=== PATIENT | male | born 1980 | race Caucasian/White ===

== ENCOUNTER 2020-03-26 19:27 | Emergency (ER) | payer OTHER, SELFPAY ==
[2020-03-26 19:24] VITALS: BP 124/90; PULSE 69; RESP 13; TEMP 36.5; O2SAT 95
[2020-03-26 19:30] VITALS: PULSE 69
--- NOTE | 2020-03-26 19:30 | ECG_ITS ---
Measurements Intervals [place] Rate: 61 P: 27 [place]: 172 QRS: -39 QRSD: 122 T: 67 QT: 408 QTc: 411 Interpretive Statements SINUS RHYTHM LEFT AXIS DEVIATION RIGHT BUNDLE BRANCH BLOCK BASELINE ARTIFACT- I, II, V1 ABNORMAL ECG Electronically Signed On 03-27-2020 6:46:21 CDT by Jean Cuellar D.O.
--- NOTE | 2020-03-26 19:34 | ED.SYNCOPE ---
HPI - Syncope General Chief Complaint: Syncope Stated Complaint: syncope Time Seen by Provider: 03/26/20 19:33 History of Present Illness HPI narrative: Syncopal episode at home this evening. He was giving himself a hair cut when he wiped some blood from his ear. After seeing the blood he became nauseated and light headed. He fell to the ground and was briefly unconscious. His called EMS and by the time they arrived he had returned to baseline. On arrival to the ED he has no symptoms. He had NC last year. Related Data Home Medications Medication Instructions Recorded Confirmed Zyrtec 10 mg PO DAILY 10/02/19 10/29/19 aspirin 81 mg PO DAILY 10/29/19 10/29/19 Allergies Allergy/AdvReac Type Severity Reaction Status Date / Time omeprazole Allergy Mild Rash Verified 03/26/20 19:42 Review of Systems Review of Systems: All systems reviewed & are unremarkable except as noted in HPI and below Constitutional: Constitutional: Denies fever(s) ENT: Denies sore throat Cardiovascular: Cardiovascular: Denies chest pain Respiratory: Respiratory: Denies dyspnea Gastrointestinal: Gastrointestinal: Denies abdominal pain, Reports nausea and Denies vomiting Musculoskeletal: Musculoskeletal: Denies back pain Neurologic: Denies confusion, Denies vertigo, Reports syncope, Denies headache(s), Denies numbness and Denies weakness Hematologic/Lymphatic: Hematologic/Lymphatic: Reports easy bleeding PMFSH Past Medical History Medical History GERD (gastroesophageal reflux disease) Pneumonia Surgical History Surgical History No history of previous surgery Family History Family History Father Acute myocardial infarction, Onset Age: 73 Diabetes mellitus Social History Social History Smoking packs per day: 0.5 Smoking cigarettes per day: 10.0 Years smoked: 6 Smoking pack-years: 3.00 Smoking status: Former smoker Tobacco type: cigarettes Second hand tobacco smoke exposure: No Alcohol intake: current Drinks per week: 6 Substance use: current Substance use type: marijuana Gender identity (if verbalized by the patient): Male Spiritual care concerns: No Agree to blood products: Yes Exam Const: General: healthy appearing, no acute distress and alert Orientation/consciousness: patient oriented x3 HENMT: Head: normal to inspection Neck: Neck: normal visual inspection and no lymphadenopathy Chest: Chest palpation & inspection: no tenderness Resp: Effort & Inspection: normal respiratory effort Auscultation: clear to auscultation bilaterally, no rales, no rhonchi and no wheezes Cardio: Jugular venous distension: no JVD Rate: regular rate Rhythm: regular rhythm Heart sounds: no murmurs GI: Inspection: non-distended GI Palp: Yes Soft to palpation and No Tenderness to palpation present (GI) Skin: General skin exam: normal color Neuro: General: patient oriented x3 and moves all extremities Speech: normal speech Extrem: General: no edema Psych: Appearance: well kempt Affect: normal affect Course Vital Signs Vital signs: Vital Signs Temperature 36.5 C 03/26/20 19:24 Pulse Rate 69 03/26/20 19:24 Respiratory Rate 13 03/26/20 19:24 Blood Pressure 124/90 03/26/20 19:24 Pulse Oximetry 95 03/26/20 19:24 Temperature 36.5 C 03/26/20 19:24 Pulse Rate 69 03/26/20 20:56 Respiratory Rate 24 H 03/26/20 20:56 Blood Pressure 123/77 03/26/20 20:56 Pulse Oximetry 93 03/26/20 20:56 MDM - Syncope MDM Narrative Medical decision making narrative: History is very indicative of vasovagal syncope. EKG unchanged from october 2019. No chest pain or other symtpom requiring further testing. Differential Diagnosis Differential diagnosis: L
[2020-03-26 19:35] VITALS: BP 120/87; PULSE 67
[2020-03-26 19:36] VITALS: BP 131/92; BP 133/95; PULSE 78; PULSE 84
[2020-03-26 19:41] LABS: Basophils Absolute Auto 0.1 K/mm3 (0.0-0.1); Basophils Percent Auto 0.7 % (0.2-1.2); Eosinophils Absolute Auto 0.1 K/mm3 (0-0.3); Eosinophils Percent Auto 1.9 % (0-4.4); Hematocrit 44.4 % (42.0-52.0); Hemoglobin 15.4 g/dL (14.0-18.0); Immature Granulocyte Absolute 0.02 K/mm3 (0.00-0.031); Immature Granulocyte Percent A 0.3 % (0-0.5); Lymphocytes Absolute Auto 2.83 K/mm3 (0.9-3.2); Lymphocytes Percent Auto 38.7 % (18.3-44.2); Mean Corpuscular HGB Conc 34.7 g/dl (32-36); Mean Corpuscular Hemoglobin 31.4 pg (26-34); Mean Corpuscular Volume 90.4 fl (80-100); Mean Platelet Volume 10.5 fl (7.4-10.4); Monocytes Absolute Auto 0.5 K/mm3 (0.1-0.6); Monocytes Percent Auto 6.6 % (2.6-8.5); Neutrophils Absolute Auto 3.8 K/mm3 (1.3-6.7); Neutrophils Percent Auto 51.8 % (45.5-73.1); Platelet Count Result 238 k/mm3 (150-375); Red Blood Count 4.91 M/mm3 (4.6-6.20); Red Cell Distribution Width 13.1 % (11.5-14.5); White Blood Count 7.3 K/mm3 (4.5-10.0)
[2020-03-26 19:52] LABS: Blood Urea Nitrogen 12 mg/dL (9-20); Calcium 9.3 mg/dL (8.4-10.2); Carbon Dioxide 24 mmol/L (22-30); Chloride 106 mmol/L (98-107); Estimated Glomerular Filt Rate > 60; Glucose 104 mg/dL (75-110); Potassium 3.8 mmol/L (3.4-5.0); Sodium 138 mmol/L (137-145)
[2020-03-26] MEDS: SODIUM CHLORIDE 0.9% IV 1,000 ML 999 ML IV CONT (20:10)
[2020-03-26 20:56] VITALS: BP 123/77; PULSE 69; RESP 24; O2SAT 93
== END 2020-03-26 20:56 | disposition home or self-care (01) ==
PROVIDERS: Emergency Provider Emergency Medicine; PCP Family Medicine
DX: R55 Syncope and collapse (principal); K21.9 Gastro-esophageal reflux disease without esophagitis; Z87.891 Personal history of nicotine dependence; I45.10 Unspecified right bundle-branch block
CPT/HCPCS: 36415; 80048; 85025; 93005; 96360; 99283; J7030

== ENCOUNTER 2024-08-20 08:00 | Outpatient (CLI) | payer OTHER, SELFPAY ==
--- NOTE | ~2024-08-20 | CT_ITS ---
EXAMINATION: CTA chest DATE: 08/20/2024 08:37 INDICATION: Ascending aortic aneurysm TECHNIQUE: Computed tomographic angiography (CTA) of the chest was performed without and with 100 mL Omnipaque-350 intravenous contrast. Volume-rendered 3D-reconstructions of the aorta and large arterie s were constructed by the technologist on a separate workstation. Automated exposure control and iter ative reconstruction technique were employed. The dose-length product was 1040.27 mGy-cm. COMPARISON: 10/02/2019 FINDINGS: The lungs remain clear with no pneumonia, pulmonary edema or pleural effusion. Heart size is normal. Prominent scattered atherosclerotic coronary artery calcification. There is suggestion of subendocard ial fat along the lateral and inferolateral foote of the left ventricle suggestive of sequela of project eng jean infarction. No pericardial effusion. No pathologically enlarged thoracic lymphadenopathy. 6.5 cm exophytic cyst arising from the upper pole the left kidney. Mild thoracic dextrocurvature with mild s pondylosis. Minimal increase in a mild fusiform aneurysm of the ascending thoracic aorta which measures up to 4.3 x 4.4 cm measured orthogonal to the flow on the coronal and sagittal images respectively. Previously this measured 4.1 x 4.2 cm. The aneurysm continues to taper to a normal caliber at the aortic arch a nd throughout the descending thoracic aorta. There is also dilation of the aortic root which measures 5.1 cm in diameter tapering to 4.2 cm at the annulus on the coronal images. This is unable to be raji sured due to motion artifact along the sagittal plane. Corresponding measurements on the prior study are 4.8 cm and 4.0 cm. IMPRESSION: 1. Slight increase in size of aneurysmal dilation of the aortic root measuring up to 5.1 cm in diamet er and of the ascending thoracic aorta measuring up to 4.4 x 4.3 cm. 2. Prominent atherosclerotic coronary artery calculi cyst with suggestion of increased subendocardial fat related to chronic infarct along the lateral and inferolateral wall of the left ventricle. Corre late for history of prior infarct. Reviewed, dictated and finalized at location A. IMPRESSION: 1. Slight increase in size of aneurysmal dilation of the aortic root measuring up to 5.1 cm in diameter and of the ascending thoracic aorta measuring up to 4. 4 x 4.3 cm. 2. Prominent atherosclerotic coronary artery calculi cyst with suggestion of in creased subendocardial fat related to chronic infarct along the lateral and inf erolateral wall of the left ventricle. Correlate for history of prior infarct.
[2024-08-20 08:30] LABS: Estimated Glomerular Filt Rate > 60
== END 2024-08-20 08:01 | disposition home or self-care (01) ==
LOC: ANHIMG 08:04
PROVIDERS: PCP Emergency Medicine; Visit Provider Internal Medicine Cardiovascular Disease
DX: I71.21 Aneurysm of the ascending aorta, without rupture (principal); I25.84 Coronary atherosclerosis due to calcified coronary lesion
CPT/HCPCS: 71275; Q9967

== ENCOUNTER 2025-08-25 10:26 | Outpatient (CLI) | payer OTHER, SELFPAY ==
--- NOTE | ~2025-08-25 | CT_ITS ---
CTA CHEST CLINICAL HISTORY: I71.21 - Aneurysm of the ascending aorta, without rupture . COMPARISON: 08/20/2024 TECHNIQUE: Helical CTA performed from thoracic inlet to upper abdomen IV contrast information not listed in PACS Coronal, sagittal reformats. Multiplanar MIPS CT images acquired with automatic exposure control for dose reduction DLP: 819 mGy-cm FINDINGS: Thoracic aorta: Unchanged fusiform ectasia of ascending aorta at 4.0 cm. Pulmonary arteries: No PE. Heart/pericardium: Coronary artery calcifications. RV/LV ratio: Normal. Lungs/Pleura: Clear. Tracheobronchial tree: Patent. Nodes: No enlarged nodes. Bones: No acute bony abnormality. Soft tissues: Unremarkable. Visualized upper abdomen: Hepatomegaly, with steatosis. Colonic diverticula. Large left renal cyst. IMPRESSION: 1. No acute cardiopulmonary findings or significant change. 2. Thoracic aorta unchanged in size with fusiform ectasia of the ascending segment at 4.0 cm. Recommend surveillance in 3 years. Reviewed, dictated and finalized at location R. IMPRESSION: 1. No acute cardiopulmonary findings or significant change. 2. Thoracic aorta unchanged in size with fusiform ectasia of the ascending seg ment at 4.0 cm. Recommend surveillance in 3 years.
== END 2025-08-25 10:27 | disposition home or self-care (01) ==
PROVIDERS: PCP Emergency Medicine; Visit Provider Internal Medicine Cardiovascular Disease
DX: I71.21 Aneurysm of the ascending aorta, without rupture (principal)
CPT/HCPCS: 71275; Q9967

== ENCOUNTER 2025-10-29 08:35 | Outpatient (CLI) | payer OTHER, SELFPAY ==
--- OUTSIDE RECORDS SUMMARY | 2025-10-29 08:40 | XMS_ITS | Data Portability ---
Author Organization [place] - [facility] OFFICE Address [address] [place] [address] Care Team Providers Care Insecticide Mixer Name Role Phone Chato Roth Primary Care Provider [phone] Assessment Encounter Date Assessment Date Assessment LastModified by Organization Details LastModified Time 05/04/2022 05/04/2022 Patient Examined by MCKINLEY Agrawal, Also interviewed / examined by Supervising physician. Assessment / plan discussed and implemented Encounter scribed by MCKINLEY Agrawal. Documentation reviewed and approved by supervising physician alyssa Not available 05/04/2022 14:13:27 11/20/2023 11/20/2023 Patient Examined by MCKINLEY Agrawal, Also Documentation reviewed and approved by supervising physician alyssa Not available 11/20/2023 10:16:58 01/01/2024 01/01/2024 Patient Examined by MCKINLEY Agrawal, Also Documentation reviewed and approved by supervising physician [email or web address] Not available 12/31/2023 07:00:41 Plan of Treatment Reminders Order Date Submit Date Provider Name Organization Details Last Modified By Last Modified Time Details Appointments None record ed. Lab None record ed. Referral None record ed. Procedures None record ed. Surgeries None record ed. Imaging None record ed. MedicationOrders None record ed. VaccineOrders None record ed. Patient TargetsNo targets recorded. Patient Instructions Encounter Date Encounter Id Patient Instructions Last Modified By Organization Details Last Modified Time 01/01/2024 [id number] Low cholesterol diet advised Low sodium diet advised. eyassin Not available 01/01/2024 12:38:57 11/20/2023 [id number] Low cholesterol diet advised Low sodium diet advised. eyassin Not available 11/20/2023 10:22:37 04/29/2023 [id number] Weight loss 20 pounds Exercise advised Low cholesterol diet advised Low sodium diet advised. [email or web address] Not available 04/29/2023 14:41:13 10/26/2022 [id number] Weight loss 20 pounds Exercise advised Low cholesterol diet advised Low sodium diet advised. [email or web address] Not available 10/26/2022 15:05:20 05/04/2022 [id number] Weight loss, 20 pounds Exercise advised Low cholesterol diet advised Low sodium diet advised. eyassin Not available 05/04/2022 14:30:11 Reason for Referral None Reported. Results Created Date Observation Date Name Description Value Unit Range Abnormal Flag Specimen Type Note LastModifiedBy Organization Detail LastModifiedTime 05/04/2022 05/04/2022 electrocardiogram No observation recorded. Gaby Negro Not Available 05/06/2022 09:58:58 10/26/2022 10/26/2022 electrocardiogram No observation recorded. Gaby Negro Not Available 10/27/2022 11:48:17 11/20/2023 11/20/2023 electrocardiogram No observation recorded. Alesha Montano Not Available 11/28/2023 13:09:58 12/09/2023 12/09/2023 exercise stress test No observation recorded. Alesha Montano Not Available 12/19/2023 10:09:34 12/14/2023 12/14/2023 US, echocardiogram No observation recorded. Alesha Montano Not Available 12/19/2023 14:44:58 Result Notes None recorded. Problems Name Problem SNOMED Code Status Onset Date Resolution Date Notes Provider Name and Address Organization Details Recorded Time High troponin I level 325292257 Active 2018 Taylor kaiser [facility] 9 06:41:42 Syncope and collapse 257868017 Active 2018 Taylor kaiser [facility] 9 06:42:12 Acute non-ST segment elevation myocardial infarction 699605569 Active 2018 Taylor kaiser [facility] 9 06:42:28 Placement of stent Active 2018 Johanny kaiser [facility] 9 12:33:42 Gastroesophage al reflux disease 099662851 Active 2018 Weaver [place]esto [place], [place] - [facility] 9 16:20:33 Pneumonia 808310502 Active 2018 Weaver [place] - [facility] 9 16:21:53 History of placement of stent for coronary artery disease 669229535 Active 2018 Weaver [place] - [facility] 9 09:43:10 Coronary arterioscleros is 96364588 Active 2018 Weaver [place] - [facility] 9 09:43:35 Dyslipidemia 791403197 Active 2019 Weaver [place] - [facility] 2 10:45:51 Syncope 266680751 Active 2019 Weaver [place] - [facility] 0 14:19:42 Lightheadednes s 768389758 Active 2019 Weaver [place] - [facility] 0 14:19:52 Problem Notes None recorded. Procedures Surgical History Date Name Laterality Status Provider Name and Address Organization Details Recorded Time [facility]ent [facility] 10/17/2019 10:44:48 Imaging Results Imaging Date Name Status LastModifiedBy Organization Detail LastModifiedTime 2 electrocardiogram completed Gaby Negro Not Available 2 09:58:58 2 electrocardiogram completed Gaby Negro Not Available 2 11:48:17 4 electrocardiogram completed Ashleigh Montano Not Available 024 13:09:58 4 exercise stress test completed Ashleigh Montano Not Available 12/19/2023 10:09:34 4 US, echocardiogram completed Ashleigh Montano Not Available 2023 14:44:58 Procedure Notes None recorded. Medical Equipment None Reported. Allergies Allergen ID Allergen Name Allergen Category Reaction Reaction Severity Criticality Documentation Date Start Date Code Code System Note Provider Name and Address Organization Details Recorded Time 9330 omeprazol e medicatio n Not available Not available Not available 10/31/[address] [facility], [place] - [facility] 9 14:59:36 Medications Name Authored On Sig Start Date Stop Date Status Note Indication Fill Status Repeat Number Dispense Quantity LastModified by Organization Details LastModified Time Zyrte c 10 mg table t 9 14:59:51 Take 1 tabl et ever y day by oral rout e. active Not Available Not availab le 0 Not Available Owen Brush [place] - [facility] 10/31/2019 14:59:51 rosuv astat in 10 mg table t 0 05:25:33 TK 1 T PO D 11/04 aborted Not Available Not availab le 0 Not Available Hima Charles MD [address] [place], [address], [facility] - [facility] 11/04/2020 15:29:40 aspir in 81 mg table t,del ayed relea se 1 05:03:33 TAKE 1 TABL ET BY MOUT H EVER Y DAY active Not Available Not availab le 0 Not Available Not Available [facility] 05/05/2021 05:03:33 clopi dogre l 75 mg table t 4 07:28:14 TAKE 1 TABL ET BY MOUT H MAGALYS Y active Not Available Not availab le 0 Not Available Not Available [facility] 06/23/2024 07:28:14 losar newman 50 mg table t 4 07:28:14 TAKE 1 AND 1/2 TABL ETS BY MOUT H EVER Y DAY active Not Available Not availab le 0 Not Available Not Available [facility] 06/23/2024 07:28:14 metop rolol succi sandy ER 25 mg table t,ext ended relea se 24 hr 4 07:28:14 TAKE 1 TABL ET BY MOUT H MAGALYS Y active Not Available Not availab le 0 Not Available Not Available [facility] 06/23/2024 07:28:14 rosuv astat in 20 mg table t 4 07:28:14 TAKE 1 TABL ET BY MOUT H MAGALYS Y active Not Available Not availab le 0 Not Available Not Available [facility] 06/23/2024 07:28:14 Vitals Date Recorded Body height Body mass index (BMI) Body weight Heart rate Respiratory rate Oxygen saturation Systolic And Diastolic Provider Name and Address Organization Details Last Updated DateTime 4 180.34 cm 37.5 kg/m2 537998. 35 g 68 /min 16 /min 96 % 145/92 mm[Hg] Martell Mihai [facility] 4 10:03:55 Date Recorded Body height Body mass index (BMI) Body weight Heart rate Respiratory rate Oxygen saturation Systolic And Diastolic Provider Name and Address Organization Details Last Updated DateTime 4 180.34 cm 36.3 kg/m2 102330. 02 g 90 /min 16 /min 97 % 134/82 mm[Hg] Martell Mihai [facility] 4 12:21:19 Date Recorded Body height Body mass index (BMI) Body weight Heart rate Respiratory rate Oxygen saturation Systolic And Diastolic Provider Name and Address Organization Details Last Updated DateTime 3 180.34 cm 35.6 kg/m2 949429. 05 g 82 /min 16 /min 97 % 120/82 mm[Hg] Hima No i, MD [address] [place], [address], [facility] 3 14:18:13 Date Recorded Body height Body mass index (BMI) Body weight Heart rate Oxygen saturation Systolic And Diastolic Provider Name and Address Organization Details Last Updated DateTime 2 180.34 cm 35.6 kg/m2 235261. 05 g 76 /min 97 % 146/66 mm[Hg] Gaby Negro [facility] 2 13:59:43 Date Recorded Body height Body mass index (BMI) Body weight Heart rate Oxygen saturation Systolic And Diastolic Provider Name and Address Organization Details Last Updated DateTime 2 180.34 cm 34.3 kg/m2 457442. 72 g 79 /min 97 % 146/86 mm[Hg] Sangeetha Bruner [facility] 2 14:32:44 Social History Question Answer Notes LastModified by Organizat ion Details LastModified Time Tobacco Smoking Status Former Smoker Not Available [facility] 09/08/2020 03:30:41 What Is Your Level Of Alcohol Consumption? Moderate drinks 6 per week Not Available [facility] 09/08/2020 03:30:41 What type of diet are you following? Regular Not Available [facility] 09/08/2020 03:30:41 How many years have you smoked tobacco? 9 Not Available [facility] 09/08/2020 03:30:41 How much tobacco do you smoke? 1/2 pack per day Not Available [facility] 09/08/2020 03:30:41 Which illicit or recreational drugs have you used? cannabis Not Available [facility] 09/08/2020 03:30:41 What is your level of caffeine consumption? Moderate Not Available [facility] 09/08/2020 03:30:41 What was the date of your most recent tobacco screening? 05/06/2020 Owen GARCIA - [facility] 11/02/2020 15:23:02 Social History Observation Description Date Observed Sex Unknown 01/01/2024 Legal Sex Male Status Not (finding) 10/29/20 25 No social history survey screeners recorded No social history SDOH screeners recorded Functional Status Question Answer Note LastModified by Organizat ion Details LastModified Time What is your exercise level? None Not Available [facility] 09/08/2020 03:30:41 Do you or have you ever used e-cigarettes or vape? Never used electronic cigarettes Not Available [facility] 09/08/2020 03:30:41 Do you or have you ever used smokeless tobacco? Former smokeless tobacco user Not Available [facility] 09/08/2020 03:30:41 What is your level of alcohol consumption? Moderate drinks 6 per week Not Available [facility] 09/08/2020 03:30:41 No Functional Screening assessment recorded No Functional SDOH screeners recorded Mental Status None recorded. No Mental Screening assessment recorded No Mental SDOH screeners recorded Family History Relationship Description Onset Age of this Age Resolved Age Notes LastModified by Organization Details LastModified Time Father No current problems or disability heart diseas e, hyperl ipidem ia, heart attack , diabet es , HTN, irregu lar heart heart rate [email or web address] Not available 10/17/2019 10:42:34 Mother No current problems or disability [email or web address] Not available 10/06 10:41:13 Sister No current problems or disability diabet es [email or web address] Not available 10/17/2019 10:42:51 Medical History Condition Response Coronary Artery Disease Y High Cholesterol Y GERD/Reflux Y Myocardial Infarction Y Hyperlipidemia Y Hypertension Y Past Encounters Encounter ID Performer Location Encounter Start Date Encounter Closed Date Diagnosis/Indication Diagnosis SNOMED-CT Code Diagnosis ICD10 Code Diagnosis IMO Codes Diagnosis Note [id number] MD Marga Torres e Office [address] [place] [address] 10/17/2019 10:23:08 10/17/2019 11:19:08 History of placement of stent for coronary artery disease 136771686 Z95.5 s/p Lcx stentstill with LAD stenosis, will plan PCI to LAD. The patient will be scheduled for left heart catheteriz ation, with coronary angiogram, and possible PTCA/Stent . The procedure was discussed with the patient, and risks, benefits, and alternativ e options were explained. The patient was given informatio n about heart catheteriz ation and interventi onal procedures . The patient agrees to proceed. Acute non- ST segment elevation myocardial infarction 239470135 I21.4 with occluded Lcx, s/p stent Dyslipidemia 589879172 E 78.5 Needs to keep LDL less than 70, and HDL more than 40. [id number] MD Marga Torres e Office [address] [place] [address] 11/14/2019 12:25:05 11/14/2019 13:14:05 History of placement of stent for coronary artery disease 533876171 Z95.5 s/p Lcx stent, and LAD PCI Acute non- ST segment elevation myocardial infarction 092761481 I21.4 with occluded Lcx, s/p stent Dyslipidemia 983600165 E 78.5 Needs to keep LDL less than 70, and HDL more than 40. [id number] MD Marga Farah e Office [address] [place] [address] 04/01/2020 13:50:28 04/01/2020 14:57:29 History of placement of stent for coronary artery disease 826573749 Z95.5 Had CATH done in 10/31/19 revealed Successful distal LAD ballon angioplast y,followed by stent placement using Xience stent 2.5 x 23. Acute non- ST segment elevation myocardial infarction 153469280 I21.4 10/03/2019 , with occluded LCX, s/p PCI Dyslipidemia 893410004 E 78.5 Needs to keep LDL less than 70, and HDL more than 40.Will obtain fasting lipids for follow up. Coronary arteriosclerosis 87766098 I25.10 Maximal medical treatment. Had CATH done in 10/02/19 revealed Left main medium-siz ed artery, no stenosis. LAD showed distal LAD 75% with very distal disease right at the apex. There is a 1st diagonal branch that has mild-to-mo derate diffuse disease. 50% to 60% narrowing. Left circumflex is totally occluded in the proximal portion. RCA is a dominant vessel with minimal irregulari ty. No obstructio n lesion. Post angioplast y of the circumflex is open with good VICKIE-3 flow, which was VICKIE-0 before the procedure for the angioplast y. now with VICKIE-3 flow and good result to the proximal circumflex . We will continue with medical treatment. The patient would benefit from considerin g angioplast y to the distal LAD at the later stage. Had CATH done in 10/31/19 revealed Successful distal LAD ballon angioplast y,followed by stent placement using Xience stent 2.5 x 23. Syncope 010245668 R55 Had vasovagal syncope 03/26/2020w ill arrange for Holter Lightheadedness 92606087 8 R42 Symptoms occuring daily since syncopal event, home HR recordings average 70-80s, but had one HR of 50 bpm, with symptoms. Will order Holter to correlate symptoms with bradycardi a or other potential arrhythmia . [id number] MD Marga Torres Office [address] [place] [address] 05/06/2020 13:33:02 05/06/2020 14:10:39 Syncope 957884605 R55 Had vasovagal syncope 03/26/2020H olter was unremarkab le (24 hour) Lightheadedness 70240367 8 R42 Symptoms occuring daily since syncopal event, home HR recordings average 70-80s, but had one HR of 50 bpm, with symptoms. Will order Holter to correlate symptoms with bradycardi a or other potential arrhythmia . Coronary arteriosclerosis 66272825 I25.10 Maximal medical treatment. Had CATH done in 10/02/19 revealed Left main medium-siz ed artery, no stenosis. LAD showed distal LAD 75% with very distal disease right at the apex. There is a 1st diagonal branch that has mild-to-mo derate diffuse disease. 50% to 60% narrowing. Left circumflex is totally occluded in the proximal portion. RCA is a dominant vessel with minimal irregulari ty. No obstructio n lesion. Post angioplast y of the circumflex is open with good VICKIE-3 flow, which was VICKIE-0 before the procedure for the angioplast y. now with VICKIE-3 flow and good result to the proximal circumflex . We will continue with medical treatment. The patient would benefit from considerin g angioplast y to the distal LAD at the later stage. Had CATH done in 10/31/19 revealed Successful distal LAD ballon angioplast y,followed by stent placement using Xience stent 2.5 x 23. History of placement of stent for coronary artery disease 826066681 Z95.5 Had CATH done in 10/31/19 revealed Successful distal LAD ballon angioplast y,followed by stent placement using Xience stent 2.5 x 23. Acute non- ST segment elevation myocardial infarction 012110399 I21.4 10/03/2019 , with occluded LCX, s/p PCI Dyslipidemia 625427226 E 78.5 Needs to keep LDL less than 70, and HDL more than 40.Will obtain fasting lipids for follow up. [id number] MD Marga Torres Office [address] [place] [address] 11/04/2020 14:54:17 11/04/2020 15:34:13 Syncope 350676065 R55 Vasovagal syncope 4 hour holter monitor 04/27/2020: Unremarkab le holter Lightheadedness 44989678 8 R42 ResolvedHo lter as above Coronary arteriosclerosis 06970979 I25.10 Asymptomat ic Angiogram 10/31/2019 : Severe disease of the LAD distally. Successful angioplast y with stent placement to the distal LAD using a Xience stent 2.5 x 23 mm with good result. History of placement of stent for coronary artery disease 695313912 Z95.5 As above Acute non- ST segment elevation myocardial infarction 809806072 I21.4 s/p PCI to LAD ( 9) Dyslipidemia 956685252 E 78.5 Needs to keep LDL less than 70, and HDL more than 40. 020 LDL 88 Will increase Crestor to 20mg 11/04/2020 Will get fasting lipids for follow-up [id number] MD Marga Torres Office [address] [place] [address] 05/05/2021 13:40:45 05/05/2021 14:03:09 Syncope 249371204 R55 Vasovagal syncope 4 hour holter monitor 04/27/2020: Unremarkab le holter Lightheadedness 71174438 8 R42 ResolvedHo lter as above Coronary arteriosclerosis 05281121 I25.10 Asymptomat ic Treadmill Myoview Stress test, has high Oxford Risk score. Has Known CAD, or CAD risk equivalent . To look for any ischemia. Angiogram 10/31/2019 : Severe disease of the LAD distally. Successful angioplast y with stent placement to the distal LAD using a Xience stent 2.5 x 23 mm with good result. History of placement of stent for coronary artery disease 712440627 Z95.5 As above Acute non- ST segment elevation myocardial infarction 299823239 I21.4 s/p PCI to LAD ( 9) Dyslipidemia 432440541 E 78.5 Needs to keep LDL less than 70, and HDL more than 40.04/08/21 LIPID PANEL TC 141, TR 136, HDL 52, LDL 65Increase d Crestor to 20mg 11/04/2020 Will get fasting lipids for follow-up [id number] MD Marga Torres Office [address] [place] [address] 05/04/2022 13:47:46 05/04/2022 14:47:22 Syncope 519017421 R55 Vasovagal syncope 4 hour holter monitor 04/27/2020: Unremarkab le holter Lightheadedness 90299174 8 R42 ResolvedHo lter as above Coronary arteriosclerosis 29139569 I25.10 Asymptomat ic exercise stress testNo reversible defects. Normal LV function. NO EKG changes to suggest ischemia. Exercise tolerance; Below average. Angiogram 10/31/2019 : Severe disease of the LAD distally. Successful angioplast y with stent placement to the distal LAD using a Xience stent 2.5 x 23 mm with good result. History of placement of stent for coronary artery disease 174082358 Z95.5 As above Acute non- ST segment elevation myocardial infarction 399529665 I21.4 s/p PCI to LAD ( 9) exercise stress testNo reversible defects. Normal LV function. NO EKG changes to suggest ischemia. Exercise tolerance; Below average. Dyslipidemia 225890156 E 78.5 Needs to keep LDL less than 70, and HDL more than 40.04/08/21 LIPID PANEL TC 141, TR 136, HDL 52, LDL 65Increase d Crestor to 20mg 11/04/2020 Will get fasting lipids for follow-up Benign ess ential hypertension 8861117 I10 Blood pressure is elevated today, consider increase metoprolol to 25 mg daily and monitoring Essential hypertension 91518580 I10 [id number] MD Marga Torres Office [address] [place] [address] 10/26/2022 14:09:19 10/26/2022 15:07:59 Syncope 872224799 R55 Vasovagal syncope 4 hour holter monitor 04/27/2020: Unremarkab le holter Lightheadedness 50216467 8 R42 Coronary arteriosclerosis 97861899 I25.10 Asymptomat ic exercise stress testNo reversible defects. Normal LV function. NO EKG changes to suggest ischemia. Exercise tolerance; Below average. Angiogram 10/31/2019 : Severe disease of the LAD distally. Successful angioplast y with stent placement to the distal LAD using a Xience stent 2.5 x 23 mm with good result. History of placement of stent for coronary artery disease 800611102 Z95.5 As above Acute non- ST segment elevation myocardial infarction 456563499 I21.4 s/p PCI to LAD ( 9) exercise stress testNo reversible defects. Normal LV function. NO EKG changes to suggest ischemia. Exercise tolerance; Below average. Dyslipidemia 593537634 E 78.5 Needs to keep LDL less than 70, and HDL more than 40.04/08/21 LIPID PANEL TC 141, TR 136, HDL 52, LDL 65Increase d Crestor to 20mg 11/04/2020 Will get fasting lipids for follow-up Benign ess ential hypertension 2958914 I10 Blood pressure is elevated today, consider increase metoprolol to 25 mg daily and monitoring Essential hypertension 12446802 I10 [id number] Hima Charles MD [facility] [address] [place] [address] 04/29/2023 13:52:17 04/29/2023 14:49:48 Syncope 661319213 R55 Vasovagal syncope 4 hour holter monitor 04/27/2020: Unremarkab le holter Lightheadedness 27694240 8 R42 Coronary arteriosclerosis 63909336 I25.10 Asymptomat ic exercise stress testNo reversible defects. Normal LV function. NO EKG changes to suggest ischemia. Exercise tolerance; Below average. Angiogram 10/31/2019 : Severe disease of the LAD distally. Successful angioplast y with stent placement to the distal LAD using a Xience stent 2.5 x 23 mm with good result. History of placement of stent for coronary artery disease 199730932 Z95.5 As above Acute non- ST segment elevation myocardial infarction 436730324 I21.4 s/p PCI to LAD ( 9) exercise stress testNo reversible defects. Normal LV function. NO EKG changes to suggest ischemia. Exercise tolerance; Below average. Dyslipidemia 501079616 E 78.5 Needs to keep LDL less than 70, and HDL more than 40.04/08/21 LIPID PANEL TC 141, TR 136, HDL 52, LDL 65 Benign ess ential hypertension 5933528 I10 Blood pressure is elevated today, consider increase metoprolol to 25 mg daily and monitoring [id number] Hima Charles MD [facility] [address] [place] [address] 11/20/2023 09:49:53 11/20/2023 10:28:01 Syncope 681402147 R55 Vasovagal syncope 4 hour holter monitor 04/27/2020: Unremarkab le holter Lightheadedness 36770372 8 R42 resolved Coronary arteriosclerosis 60087690 I25.10 Treadmill Myoview Stress test, has high Oxford Risk score. Has Known CAD, or CAD risk equivalent . To look for any ischemia. exercise stress testNo reversible defects. Normal LV function. NO EKG changes to suggest ischemia. Exercise tolerance; Below average. Angiogram 10/31/2019 : Severe disease of the LAD distally. Successful angioplast y with stent placement to the distal LAD using a Xience stent 2.5 x 23 mm with good result. History of placement of stent for coronary artery disease 465256762 Z95.5 As above Acute non- ST segment elevation myocardial infarction 598047526 I21.4 s/p PCI to LAD ( 9) exercise stress testNo reversible defects. Normal LV function. NO EKG changes to suggest ischemia. Exercise tolerance; Below average. Dyslipidemia 541529190 E 78.5 Needs to keep LDL less than 70, and HDL more than 40.04/08/21 LIPID PANEL TC 141, TR 136, HDL 52, LDL 65 LDL was 54 done 08/2023 and he is taking crestor 20 mg daily. Benign ess ential hypertension 9409557 I10 BP is 160/110wil l start him on losartan 50 mg daily Dyspnea on exertion 6084 5006 R06.09 Obtain echo to evaluate for structural /functiona l disease. Essential hypertension 30110548 I10 [id number] Hima Charles MD [place] [facility] [place] [address] 01/01/2024 12:17:39 01/01/2024 12:43:46 Syncope 626107713 R55 Vasovagal syncope 4 hour holter monitor 04/27/2020: Unremarkab le holter Lightheadedness 61122623 8 R42 resolved Coronary arteriosclerosis 63303162 I25.10 positive stress test at the infero lateral aspect The patient will be scheduled for left heart catheteriz ation, with coronary angiogram, and possible PTCA/Stent . The procedure was discussed with the patient, and risks, benefits, and alternativ e options were explained. The patient was given informatio n about heart catheteriz ation and interventi onal procedures . The patient agrees to proceed. exercise stress testNo reversible defects. Normal LV function. NO EKG changes to suggest ischemia. Exercise tolerance; Below average. Angiogram 10/31/2019 : Severe disease of the LAD distally. Successful angioplast y with stent placement to the distal LAD using a Xience stent 2.5 x 23 mm with good result. History of placement of stent for coronary artery disease [id number] Z95.5 As above Acute non- ST segment elevation myocardial infarction [id number] I21.4 see aboves/p PCI to LAD ( 9) exercise stress testNo reversible defects. Normal LV function. NO EKG changes to suggest ischemia. Exercise tolerance; Below average. Dyslipidemia [id number] E 78.5 Needs to keep LDL less than 70, and HDL more than 40.04/08/21 LIPID PANEL TC 141, TR 136, HDL 52, LDL 65 LDL was 54 done 08/2023 and he is taking crestor 20 mg daily. Benign ess ential hypertension [id number] I10 BP is elevated today 160/120inc reased his losartan 75 mg daily Dyspnea on exertion 6084 5006 R06.09 US, echocardio gramStudy quality: Technicall y difficult. Technical limitation s- poor acoustic window, body habitus. LV chamber size is normal. The estimated left ventricle ejection fraction is 50-55% (normal). Left Atrium chamber is mildly dilated. Essential hypertension [id number] I10 BP is elevated today 160/120inc reased his losartan 75 mg daily Health Concerns Section Related Observation LastModified by Organization Detai ls LastModified Time None Recorded Concern Status LastModified by Organization Details LastModified Time None Recorded SDOH Concern Status LastModified by Organization Detai ls LastModified Time None Recorded Advance Directives Directive None Recorded Payers Insurance Date Sequence Insurance Name Policy Number Policy Riggs Covered Member ID Riggs Member ID Guarantor Name 09/23/2025 1 [facility] [employer] ([facility]) [id number] Catrachito Shen [id number] Catrachito Shen 04/29/2023 1 [facility] Gaby Shen [id number] Catrachito Shen Notes Date Note Type Note Provider Name and Address Organization Details Recorded Time 2 text/html 05/04/22CC : Cardiac follow up chest pain and dyspnea on [id number]-lvd White Male with PMH Hyperlipidemia , NSTEMI, Coronary artery disease , S/P PCI/stenting (10/02/19, 10/31/19) is here for 1 year follow up. He was last seen in the clinic on 05/05/21, since then he is doing well. He denied chest pain or dyspnea on exertion. He is being active and biking daily for at least 30 minutes without problem. *Last LDL was 65 done on 04/07/21 .Pt takes rosuvastatin 20 mg .He denies ER visits and hospitalizations since he was last seen. Today reports:Denies chest pain.Denies shortness of breath at rest. Has mild dyspnea on exertion.No orthopnea. No PNDs.Denies heart palpitations.Denies dizziness. Denies syncope or near syncope.No ankle or leg edema.No major bleeding events.No reported side effects from medications. Taking medications as prescribed with no missed doses.Denies snoring, daytime somnolence and AM headache.*Last LDL was 65 done on 04/07/21 .Pt takes rosuvastatin 20 mg . Previously :Reported one episode of pre-syncope, however he relates it to seeing his own blood. He cut his finger and felt like he was going to pass out. Reports that he has previously done this when seeing his own blood. Reports that he is exercising daily with an exercise bike. Tries for one hour daily. He had occasional chest twinges that are very rare and last only seconds. No further episodes of dizziness/lightheadedness . He was at [facility] on 03/26/2020 due to syncope. Events surrounding episode indicated vasovagal etiology. He was in [facility] in 10/31/19 because of Non-ST elevation myocardial infarction . *Had Carotid u/s 10/04/2019 <50% stenosis bilaterally. *Had CATH done in 10/31/19 revealed Successful distal LAD ballon angioplasty,followed by stent placement using Xience stent 2.5 x 23. *Had ECHO done in 10/02/19 showed LVSF is normal, estimated at 60-65%. Mild pulmonary HTN, estimated pulmonary arterial systolic pressure is 45 mmHg .Results from this visit, or from the past:04/08/21 CR 90 04/08/21 CMP GL 95, BUN 12, CR 0.82, NA 143, K 4.4, CHL 105, C02 23, CA 9.9, AP 60, AST 17, ALT 27 04/08/21 LIPID PANEL TC 141, TR 136, HDL 52, LDL 65 05/01/2020 : Glucose 105,BUN 11,Creati 0.85,Na 140,K 4.4,Cl 105,Co2 24,Ca 9.9 LIPID PANEL: Cholesterol 161,Triglycerides 99,HDL 53,LDL 88 CMP, serum or plasma 03-26-2020 03/26/20:NA 138 ,K 3.8 ,CL 106 ,CO2 24 ,GLU 104,BUN 12 ,CR 0.8 , CBC w/ diff 03-26-2020 03/26/20:HG 15.4 ,HT 44.4 , 10/31/19 : Na 137,K 4.4,Cl 104,Co2 22,BUN 12,Creati 0.80,Glucose 105,Ca 9.6 CBC 10/31/2019 WBC 6.0 RBC 5.04 HGB 15.8 HCT 45.3 PLT 224 EKG 11/04/20: Possible incomplete RBBB. Inferior myocardial infarction, age undetermined. Left anterior hemiblock.electrocardiogr am 04-07-2020 SINUS RHYTHM ,LEFT AXIS DEVEATION RIGHT BUNDLE BRANCH BLOCK,BASELINE ARTIFACT-I,IT,,ABN ECGelectrocardiogram 03-26-2020 SINUS RHYTHM MARKED LFT AXIS DEVIATION,(QRS AXIS-30) MODERATE INTRAVENTRICULAR CONDUCTION DELAY 110+QRS DURATION,COMPARED TO ECG 10/31/19,LEFT-AXSIS DEVIATION NOW PRESENT,INTRAVENTRICULTIO N CONDUCTION DELAY NOW PRESENT 10/17/19 : EKG : inferior myocardial vbwhaoxqtp82/27/19 Sinus bradycardia atrial premature complex right bundle branch block borderline ST-T wave abnormality-inferior leads Abnormal ECG 04/27/2020 : HOLTER MONITOR : UNREMARKABLE HOLTER 10/04/19 : [place] Carotid: 1) Less than 50% stenosis in the right internal carotid artery by sonographic Criteria ,2) Less than 50% stenosis in the left internal carotid artery by sonographic criteria ,2) Less than 50% stenosis in the left internal carotid artery by sonographic criteria Echo 10/02/2019 LVSF is normal, estimated at 60-65%. Mild pulmonary HTN, estimated pulmonary arterial systolic pressure is 45 mmHg holter monitor 04-27-2020 04/27/20 24hr HOLTER MONITOR: Unremarkable Holter. 10/03/19 catheterization straight - procedure (PROC) Left main medium-sized artery, no stenosis. LAD showed distal LAD 75% with very distal disease right at the apex. There is a 1st diagonal branch that has scrp-xc-tfdhsqnc diffuse disease. 50% to 60% narrowing. Left circumflex is totally occluded in the proximal portion. RCA is a dominant vessel with minimal irregularity. No obstruction lesion. Post angioplasty of the circumflex is open with good VICKIE-3 flow, which was VICKIE-0 before the procedure for the angioplasty. now with VICKIE-3 flow and good result to the proximal circumflex. We will continue with medical treatment. The patient would benefit from considering angioplasty to the distal LAD at the later stage. 10/04/19 : [place] Carotid: 1) Less than 50% stenosis in the right internal carotid artery by sonographic Criteria ,2) Less than 50% stenosis in the left internal carotid artery by sonographic criteria ,2) Less than 50% stenosis in the left internal carotid artery by sonographic criteria 10/31/19 Left heart Cath with lft coronary artery angiogram : Angiogram 10/31/2019 Severe disease of the LAD distally. Successful angioplasty with stent placement to the distal LAD using a Xience stent 2.5x 23 mm with good result 10/04/19 : [place] Carotid: 1) Less than 50% stenosis in the right internal carotid artery by sonographic Criteria ,2) Less than 50% stenosis in the left internal carotid artery by sonographic criteria ,2) Less than 50% stenosis in the left internal carotid artery by sonographic criteria Angiogram 10/02/2019 Left main medium sized artery, no stenosis. LAD showed distal LAD 75% with very distal disease right at the apex There is a 1st diagonal branch that has mild to moderate diffuse disease 50% to 60% narrowing. Left circumflex is totally occluded in the proximal portion. RCA is a dominant vessel with minimal irregularity. No obstructive lesion. Post angioplasty of the circumflex is open with good VICKIE 3 flow, which was VICKIE 0 before the procedure for the angioplasty, now with VICKIE 3 flow and good result to the proximal circumflex Echo 10/02/2019 LVSF is normal, estimated at 60-65%. Mild pulmonary HTN, estimated pulmonary arterial systolic pressure is 45 mmHg 10/02/19 Mild fusiform ascending thoracic aortic aneurysm measuring. 4.1 x 4.2 cm No acute cardiopulmonary disease. XR, chest, 2 view No acute cardiopulmonary disease Hima Charles MD [address] [facility], [place], [address], [place] [facility] 05/04/2022 14:45:01 2 text/html 10/26/22CC : Cardiac follow up , dyspnea on [id number] White Male with PMH Hyperlipidemia , NSTEMI, Coronary artery disease , S/P PCI/stenting (10/02/19, 10/31/19) is here for 6 month follow up. He was last seen in the clinic on 05/04/22, since then he is active with exerciseHe denies ER visits and hospitalizations since he was last seen. Denies chest pain.Denies shortness of breath at rest. Has mild dyspnea on exertion.No orthopnea. No PNDs.Denies heart palpitations.Denies dizziness. Denies syncope or near syncope.No ankle or leg edema.No major bleeding events.No reported side effects from medications. Taking medications as prescribed with no missed doses.Denies snoring, daytime somnolence and AM headache.*Last LDL 56 was done on 04/07/21.Pt takes rosuvastatin 20 mg . Previously:Reported one episode of pre-syncope, however he relates it to seeing his own blood. He cut his finger and felt like he was going to pass out. Reports that he has previously done this when seeing his own blood. Reports that he is exercising daily with an exercise bike. Tries for one hour daily. *Had Carotid US 10/04/2019 <50% stenosis bilaterally. *Had CATH done in 10/31/19 revealed Successful distal LAD ballon angioplasty,followed by stent placement using Xience stent 2.5 x 23. *Had ECHO done in 10/02/19 showed LVSF is normal, estimated at 60-65%. Mild pulmonary HTN, estimated pulmonary arterial systolic pressure is 45 mmHg .Results from this visit, or from the past:04/08/21 CR 90 04/08/21 CMP GL 95, BUN 12, CR 0.82, NA 143, K 4.4, CHL 105, C02 23, CA 9.9, AP 60, AST 17, ALT 27 04/08/21 LIPID PANEL TC 141, TR 136, HDL 52, LDL 65 05/01/2020 : Glucose 105,BUN 11,Creati 0.85,Na 140,K 4.4,Cl 105,Co2 24,Ca 9.9 LIPID PANEL: Cholesterol 161,Triglycerides 99,HDL 53,LDL 88 CMP, serum or plasma 03-26-2020 03/26/20:NA 138 ,K 3.8 ,CL 106 ,CO2 24 ,GLU 104,BUN 12 ,CR 0.8 , CBC w/ diff 03-26-2020 03/26/20:HG 15.4 ,HT 44.4 ,10/31/19 : Na 137,K 4.4,Cl 104,Co2 22,BUN 12,Creati 0.80,Glucose 105,Ca 9.6 CBC 10/31/2019 WBC 6.0 RBC 5.04 HGB 15.8 HCT 45.3 PLT 224 EKG 11/04/20: Possible incomplete RBBB. Inferior myocardial infarction, age undetermined. Left anterior hemiblock.electrocardiogr am 04-07-2020 SINUS RHYTHM ,LEFT AXIS DEVEATION RIGHT BUNDLE BRANCH BLOCK,BASELINE ARTIFACT-I,IT,,ABN ECGelectrocardiogram 03-26-2020 SINUS RHYTHM MARKED LFT AXIS DEVIATION,(QRS AXIS-30) MODERATE INTRAVENTRICULAR CONDUCTION DELAY 110+QRS DURATION,COMPARED TO ECG 10/31/19,LEFT-AXSIS DEVIATION NOW PRESENT,INTRAVENTRICULTIO N CONDUCTION DELAY NOW PRESENT 10/17/19 : EKG : inferior myocardial eafpqtdwpt03/27/19 Sinus bradycardia atrial premature complex right bundle branch block borderline ST-T wave abnormality-inferior leads Abnormal ECG 04/27/2020 : HOLTER MONITOR : UNREMARKABLE HOLTER 10/04/19 : [place] Carotid: 1) Less than 50% stenosis in the right internal carotid artery by sonographic Criteria ,2) Less than 50% stenosis in the left internal carotid artery by sonographic criteria ,2) Less than 50% stenosis in the left internal carotid artery by sonographic criteria Echo 10/02/2019 LVSF is normal, estimated at 60-65%. Mild pulmonary HTN, estimated pulmonary arterial systolic pressure is 45 mmHg holter monitor 04-27-2020 04/27/20 24hr HOLTER MONITOR: Unremarkable Holter. 10/03/19 catheterization straight - procedure (PROC) Left main medium-sized artery, no stenosis. LAD showed distal LAD 75% with very distal disease right at the apex. There is a 1st diagonal branch that has vjtm-cy-alqpqimh diffuse disease. 50% to 60% narrowing. Left circumflex is totally occluded in the proximal portion. RCA is a dominant vessel with minimal irregularity. No obstruction lesion. Post angioplasty of the circumflex is open with good VICKIE-3 flow, which was VICKIE-0 before the procedure for the angioplasty. now with VICKIE-3 flow and good result to the proximal circumflex. We will continue with medical treatment. The patient would benefit from considering angioplasty to the distal LAD at the later stage. 10/04/19 : [place] Carotid: 1) Less than 50% stenosis in the right internal carotid artery by sonographic Criteria ,2) Less than 50% stenosis in the left internal carotid artery by sonographic criteria ,2) Less than 50% stenosis in the left internal carotid artery by sonographic criteria 10/31/19 Left heart Cath with lft coronary artery angiogram : Angiogram 10/31/2019 Severe disease of the LAD distally. Successful angioplasty with stent placement to the distal LAD using a Xience stent 2.5x 23 mm with good result 10/04/19 : [place] Carotid: 1) Less than 50% stenosis in the right internal carotid artery by sonographic Criteria ,2) Less than 50% stenosis in the left internal carotid artery by sonographic criteria ,2) Less than 50% stenosis in the left internal carotid artery by sonographic criteria Angiogram 10/02/2019 Left main medium sized artery, no stenosis. LAD showed distal LAD 75% with very distal disease right at the apex There is a 1st diagonal branch that has mild to moderate diffuse disease 50% to 60% narrowing. Left circumflex is totally occluded in the proximal portion. RCA is a dominant vessel with minimal irregularity. No obstructive lesion. Post angioplasty of the circumflex is open with good VICKIE 3 flow, which was VICKIE 0 before the procedure for the angioplasty, now with VICKIE 3 flow and good result to the proximal circumflex Echo 10/02/2019 LVSF is normal, estimated at 60-65%. Mild pulmonary HTN, estimated pulmonary arterial systolic pressure is 45 mmHg 10/02/19 Mild fusiform ascending thoracic aortic aneurysm measuring. 4.1 x 4.2 cm No acute cardiopulmonary disease. XR, chest, 2 view No acute cardiopulmonary disease Hima Charles MD [address] [place], [address], [facility] 10/26/2022 15:06:30 3 text/html 04/29/23CC : Cardiac follow up , dyspnea on -gniss-pjs White Male with PMH Hyperlipidemia , NSTEMI, Coronary artery disease , S/P PCI/stenting (10/02/19, 10/31/19) is here for 6 month follow up. He was last seen in the clinic on 10/26/22, since then he is doing wellHe denies ER visits and hospitalizations since he was last seen. Denies chest pain.Denies shortness of breath at rest. Has mild dyspnea on exertion.No orthopnea. No PNDs.Denies heart palpitations.Denies dizziness. Denies syncope or near syncope.No ankle or leg edema.No major bleeding events.No reported side effects from medications. Taking medications as prescribed with no missed doses.Denies snoring, daytime somnolence and AM headache.*Last LDL was 24 done on 04/07/21.Pt takes rosuvastatin 20 mg. Previously:He is active with exercise Reported one episode of pre-syncope, however he relates it to seeing his own blood. He cut his finger and felt like he was going to pass out. Reports that he has previously done this when seeing his own blood. Reports that he is exercising daily with an exercise bike. Tries for one hour daily. *Had Carotid US 10/04/2019 <50% stenosis bilaterally. *Had CATH done in 10/31/19 revealed Successful distal LAD ballon angioplasty,followed by stent placement using Xience stent 2.5 x 23. *Had ECHO done in 10/02/19 showed LVSF is normal, estimated at 60-65%. Mild pulmonary HTN, estimated pulmonary arterial systolic pressure is 45 mmHg .Results from this visit, or from the past:04/08/21 CR 90 04/08/21 CMP GL 95, BUN 12, CR 0.82, NA 143, K 4.4, CHL 105, C02 23, CA 9.9, AP 60, AST 17, ALT 27 04/08/21 LIPID PANEL TC 141, TR 136, HDL 52, LDL 65 05/01/2020 : Glucose 105,BUN 11,Creati 0.85,Na 140,K 4.4,Cl 105,Co2 24,Ca 9.9 LIPID PANEL: Cholesterol 161,Triglycerides 99,HDL 53,LDL 88 CMP, serum or plasma 03-26-2020 03/26/20:NA 138 ,K 3.8 ,CL 106 ,CO2 24 ,GLU 104,BUN 12 ,CR 0.8 , CBC w/ diff 03-26-2020 03/26/20:HG 15.4 ,HT 44.4 ,10/31/19 : Na 137,K 4.4,Cl 104,Co2 22,BUN 12,Creati 0.80,Glucose 105,Ca 9.6 CBC 10/31/2019 WBC 6.0 RBC 5.04 HGB 15.8 HCT 45.3 PLT 224 EKG 11/04/20: Possible incomplete RBBB. Inferior myocardial infarction, age undetermined. Left anterior hemiblock.electrocardiogr am 04-07-2020 SINUS RHYTHM ,LEFT AXIS DEVEATION RIGHT BUNDLE BRANCH BLOCK,BASELINE ARTIFACT-I,IT,,ABN ECGelectrocardiogram 03-26-2020 SINUS RHYTHM MARKED LFT AXIS DEVIATION,(QRS AXIS-30) MODERATE INTRAVENTRICULAR CONDUCTION DELAY 110+QRS DURATION,COMPARED TO ECG 10/31/19,LEFT-AXSIS DEVIATION NOW PRESENT,INTRAVENTRICULTIO N CONDUCTION DELAY NOW PRESENT 10/17/19 : EKG : inferior myocardial kpkhphcmea21/27/19 Sinus bradycardia atrial premature complex right bundle branch block borderline ST-T wave abnormality-inferior leads Abnormal ECG 04/27/2020 : HOLTER MONITOR : UNREMARKABLE HOLTER 10/04/19 : [place] Carotid: 1) Less than 50% stenosis in the right internal carotid artery by sonographic Criteria ,2) Less than 50% stenosis in the left internal carotid artery by sonographic criteria ,2) Less than 50% stenosis in the left internal carotid artery by sonographic criteria Echo 10/02/2019 LVSF is normal, estimated at 60-65%. Mild pulmonary HTN, estimated pulmonary arterial systolic pressure is 45 mmHg holter monitor 04-27-2020 04/27/20 24hr HOLTER MONITOR: Unremarkable Holter. 10/03/19 catheterization straight - procedure (PROC) Left main medium-sized artery, no stenosis. LAD showed distal LAD 75% with very distal disease right at the apex. There is a 1st diagonal branch that has fwtx-al-iueuhius diffuse disease. 50% to 60% narrowing. Left circumflex is totally occluded in the proximal portion. RCA is a dominant vessel with minimal irregularity. No obstruction lesion. Post angioplasty of the circumflex is open with good VICKIE-3 flow, which was VICKIE-0 before the procedure for the angioplasty. now with VICKIE-3 flow and good result to the proximal circumflex. We will continue with medical treatment. The patient would benefit from considering angioplasty to the distal LAD at the later stage. 10/04/19 : [place] Carotid: 1) Less than 50% stenosis in the right internal carotid artery by sonographic Criteria ,2) Less than 50% stenosis in the left internal carotid artery by sonographic criteria ,2) Less than 50% stenosis in the left internal carotid artery by sonographic criteria 10/31/19 Left heart Cath with lft coronary artery angiogram : Angiogram 10/31/2019 Severe disease of the LAD distally. Successful angioplasty with stent placement to the distal LAD using a Xience stent 2.5x 23 mm with good result 10/04/19 : [place] Carotid: 1) Less than 50% stenosis in the right internal carotid artery by sonographic Criteria ,2) Less than 50% stenosis in the left internal carotid artery by sonographic criteria ,2) Less than 50% stenosis in the left internal carotid artery by sonographic criteria Angiogram 10/02/2019 Left main medium sized artery, no stenosis. LAD showed distal LAD 75% with very distal disease right at the apex There is a 1st diagonal branch that has mild to moderate diffuse disease 50% to 60% narrowing. Left circumflex is totally occluded in the proximal portion. RCA is a dominant vessel with minimal irregularity. No obstructive lesion. Post angioplasty of the circumflex is open with good VICKIE 3 flow, which was VICKIE 0 before the procedure for the angioplasty, now with VICKIE 3 flow and good result to the proximal circumflex Echo 10/02/2019 LVSF is normal, estimated at 60-65%. Mild pulmonary HTN, estimated pulmonary arterial systolic pressure is 45 mmHg 10/02/19 Mild fusiform ascending thoracic aortic aneurysm measuring. 4.1 x 4.2 cm No acute cardiopulmonary disease. XR, chest, 2 view No acute cardiopulmonary disease Hima Charles MD [address] [place], [address], [place] [facility] 04/29/2023 14:41:28 4 text/html 11/20/23CC : Cardiac follow up chest [id number] White Male with PMH Hyperlipidemia , NSTEMI, Coronary artery disease , S/P PCI/stenting (10/02/19, 10/31/19) is here for 6 month follow up. He was last seen in the clinic on 04/29/23, since then he is doing well. LDL was 54 done 08/2023 and he is taking crestor 20 mg daily.He denies ER visits and hospitalizations since he was last seen. Denies chest pain.Denies shortness of breath at rest. Has mild dyspnea on exertion.No orthopnea. No PNDs.Denies heart palpitations.Denies dizziness. Denies syncope or near syncope.No ankle or leg edema.No major bleeding events.No reported side effects from medications. Taking medications as prescribed with no missed doses.Denies snoring, daytime somnolence and AM headache.*Last LDL was 54 done on .Pt takes rosuvastatin 20 mg. Previously:He is active with exercise Reported one episode of pre-syncope, however he relates it to seeing his own blood. He cut his finger and felt like he was going to pass out. Reports that he has previously done this when seeing his own blood. Reports that he is exercising daily with an exercise bike. Tries for one hour daily. *Had Carotid US 10/04/2019 <50% stenosis bilaterally. *Had CATH done in 10/31/19 revealed Successful distal LAD ballon angioplasty,followed by stent placement using Xience stent 2.5 x 23. *Had ECHO done in 10/02/19 showed LVSF is normal, estimated at 60-65%. Mild pulmonary HTN, estimated pulmonary arterial systolic pressure is 45 mmHg .Results from this visit, or from the past:04/08/21 CR 90 04/08/21 CMP GL 95, BUN 12, CR 0.82, NA 143, K 4.4, CHL 105, C02 23, CA 9.9, AP 60, AST 17, ALT 27 04/08/21 LIPID PANEL TC 141, TR 136, HDL 52, LDL 65 05/01/2020 : Glucose 105,BUN 11,Creati 0.85,Na 140,K 4.4,Cl 105,Co2 24,Ca 9.9 LIPID PANEL: Cholesterol 161,Triglycerides 99,HDL 53,LDL 88 CMP, serum or plasma 03-26-2020 03/26/20:NA 138 ,K 3.8 ,CL 106 ,CO2 24 ,GLU 104,BUN 12 ,CR 0.8 , CBC w/ diff 03-26-2020 03/26/20:HG 15.4 ,HT 44.4 ,10/31/19 : Na 137,K 4.4,Cl 104,Co2 22,BUN 12,Creati 0.80,Glucose 105,Ca 9.6 CBC 10/31/2019 WBC 6.0 RBC 5.04 HGB 15.8 HCT 45.3 PLT 224 EKG 11/04/20: Possible incomplete RBBB. Inferior myocardial infarction, age undetermined. Left anterior hemiblock.electrocardiogr am 04-07-2020 SINUS RHYTHM ,LEFT AXIS DEVEATION RIGHT BUNDLE BRANCH BLOCK,BASELINE ARTIFACT-I,IT,,ABN ECGelectrocardiogram 03-26-2020 SINUS RHYTHM MARKED LFT AXIS DEVIATION,(QRS AXIS-30) MODERATE INTRAVENTRICULAR CONDUCTION DELAY 110+QRS DURATION,COMPARED TO ECG 10/31/19,LEFT-AXSIS DEVIATION NOW PRESENT,INTRAVENTRICULTIO N CONDUCTION DELAY NOW PRESENT 10/17/19 : EKG : inferior myocardial scwrbzgset93/27/19 Sinus bradycardia atrial premature complex right bundle branch block borderline ST-T wave abnormality-inferior leads Abnormal ECG 04/27/2020 : HOLTER MONITOR : UNREMARKABLE HOLTER 10/04/19 : [place] Carotid: 1) Less than 50% stenosis in the right internal carotid artery by sonographic Criteria ,2) Less than 50% stenosis in the left internal carotid artery by sonographic criteria ,2) Less than 50% stenosis in the left internal carotid artery by sonographic criteria Echo 10/02/2019 LVSF is normal, estimated at 60-65%. Mild pulmonary HTN, estimated pulmonary arterial systolic pressure is 45 mmHg holter monitor 04-27-2020 04/27/20 24hr HOLTER MONITOR: Unremarkable Holter. 10/03/19 catheterization straight - procedure (PROC) Left main medium-sized artery, no stenosis. LAD showed distal LAD 75% with very distal disease right at the apex. There is a 1st diagonal branch that has auhk-ce-fqpdztpp diffuse disease. 50% to 60% narrowing. Left circumflex is totally occluded in the proximal portion. RCA is a dominant vessel with minimal irregularity. No obstruction lesion. Post angioplasty of the circumflex is open with good VICKIE-3 flow, which was VICKIE-0 before the procedure for the angioplasty. now with VICKIE-3 flow and good result to the proximal circumflex. We will continue with medical treatment. The patient would benefit from considering angioplasty to the distal LAD at the later stage. 10/04/19 : US Carotid: 1) Less than 50% stenosis in the right internal carotid artery by sonographic Criteria ,2) Less than 50% stenosis in the left internal carotid artery by sonographic criteria ,2) Less than 50% stenosis in the left internal carotid artery by sonographic criteria 10/31/19 Left heart Cath with lft coronary artery angiogram : Angiogram 10/31/2019 Severe disease of the LAD distally. Successful angioplasty with stent placement to the distal LAD using a Xience stent 2.5x 23 mm with good result 10/04/19 : US Carotid: 1) Less than 50% stenosis in the right internal carotid artery by sonographic Criteria ,2) Less than 50% stenosis in the left internal carotid artery by sonographic criteria ,2) Less than 50% stenosis in the left internal carotid artery by sonographic criteria Angiogram 10/02/2019 Left main medium sized artery, no stenosis. LAD showed distal LAD 75% with very distal disease right at the apex There is a 1st diagonal branch that has mild to moderate diffuse disease 50% to 60% narrowing. Left circumflex is totally occluded in the proximal portion. RCA is a dominant vessel with minimal irregularity. No obstructive lesion. Post angioplasty of the circumflex is open with good VICKIE 3 flow, which was VICKIE 0 before the procedure for the angioplasty, now with VICKIE 3 flow and good result to the proximal circumflex Echo 10/02/2019 LVSF is normal, estimated at 60-65%. Mild pulmonary HTN, estimated pulmonary arterial systolic pressure is 45 mmHg 10/02/19 Mild fusiform ascending thoracic aortic aneurysm measuring. 4.1 x 4.2 cm No acute cardiopulmonary disease. XR, chest, 2 view No acute cardiopulmonary disease ARDHA Montesinos - [facility] 11/20/2023 10:23:03 4 text/html 01/01/24CC : Cardiac follow up dyspnea on [id number] White Male with PMH Hyperlipidemia , NSTEMI, Coronary artery disease , S/P PCI/stenting (10/02/19, 10/31/19) is here for follow up with stress test and ECHO results. He was last seen in the clinic on 11/20/23, since then he has a positive stress test at the inferolateral aspect of the heart.*Last LDL was 54 done on 09/03/23.Pt takes rosuvastatin 20 mg. He denies ER visits and hospitalizations since he was last seen. Today reports:Denies chest pain.Denies shortness of breath at rest. Has mild dyspnea on exertion.No orthopnea. No PNDs.Denies heart palpitations.Denies dizziness. Denies syncope or near syncope.No ankle or leg edema.No major bleeding events.No reported side effects from medications. Taking medications as prescribed with no missed doses.Denies snoring, daytime somnolence and AM headache.*Last LDL was 54 done on 09/03/23.Pt takes rosuvastatin 20 mg. *Had ECHO on 12/14/23 showed LV chamber size is normal. The estimated left ventricle ejection fraction is 50-55% (normal). Left Atrium chamber is mildly dilated. *Had Positive stress test on 12/09/23 with Reversible defect consistent with ischemia in inferior-lateral area. Exercise tolerance: Average. Previously:He is active with exercise Reported one episode of pre-syncope, however he relates it to seeing his own blood. He cut his finger and felt like he was going to pass out. Reports that he has previously done this when seeing his own blood. Reports that he is exercising daily with an exercise bike. Tries for one hour daily. *Had Carotid US 10/04/2019 <50% stenosis bilaterally. *Had CATH done in 10/31/19 revealed Successful distal LAD ballon angioplasty,followed by stent placement using Xience stent 2.5 x 23.Results from this visit, or from the past:04/08/21 CR 90 04/08/21 CMP GL 95, BUN 12, CR 0.82, NA 143, K 4.4, CHL 105, C02 23, CA 9.9, AP 60, AST 17, ALT 27 04/08/21 LIPID PANEL TC 141, TR 136, HDL 52, LDL 65 05/01/2020 : Glucose 105,BUN 11,Creati 0.85,Na 140,K 4.4,Cl 105,Co2 24,Ca 9.9 LIPID PANEL: Cholesterol 161,Triglycerides 99,HDL 53,LDL 88 CMP, serum or plasma 03-26-2020 03/26/20:NA 138 ,K 3.8 ,CL 106 ,CO2 24 ,GLU 104,BUN 12 ,CR 0.8 , CBC w/ diff 03-26-2020 03/26/20:HG 15.4 ,HT 44.4 ,10/31/19 : Na 137,K 4.4,Cl 104,Co2 22,BUN 12,Creati 0.80,Glucose 105,Ca 9.6 CBC 10/31/2019 WBC 6.0 RBC 5.04 HGB 15.8 HCT 45.3 PLT 224 EKG 11/04/20: Possible incomplete RBBB. Inferior myocardial infarction, age undetermined. Left anterior hemiblock.electrocardiogr am 04-07-2020 SINUS RHYTHM ,LEFT AXIS DEVEATION RIGHT BUNDLE BRANCH BLOCK,BASELINE ARTIFACT-I,IT,,ABN ECGelectrocardiogram 03-26-2020 SINUS RHYTHM MARKED LFT AXIS DEVIATION,(QRS AXIS-30) MODERATE INTRAVENTRICULAR CONDUCTION DELAY 110+QRS DURATION,COMPARED TO ECG 10/31/19,LEFT-AXSIS DEVIATION NOW PRESENT,INTRAVENTRICULTIO N CONDUCTION DELAY NOW PRESENT 10/17/19 : EKG : inferior myocardial yiczazdxgp13/27/19 Sinus bradycardia atrial premature complex right bundle branch block borderline ST-T wave abnormality-inferior leads Abnormal ECG 04/27/2020 : HOLTER MONITOR : UNREMARKABLE HOLTER 10/04/19 : US Carotid: 1) Less than 50% stenosis in the right internal carotid artery by sonographic Criteria ,2) Less than 50% stenosis in the left internal carotid artery by sonographic criteria ,2) Less than 50% stenosis in the left internal carotid artery by sonographic criteria Echo 10/02/2019 LVSF is normal, estimated at 60-65%. Mild pulmonary HTN, estimated pulmonary arterial systolic pressure is 45 mmHg holter monitor 04-27-2020 04/27/20 24hr HOLTER MONITOR: Unremarkable Holter. 10/03/19 catheterization straight - procedure (PROC) Left main medium-sized artery, no stenosis. LAD showed distal LAD 75% with very distal disease right at the apex. There is a 1st diagonal branch that has [id number] diffuse disease. 50% to 60% narrowing. Left circumflex is totally occluded in the proximal portion. RCA is a dominant vessel with minimal irregularity. No obstruction lesion. Post angioplasty of the circumflex is open with good VICKIE-3 flow, which was VICKIE-0 before the procedure for the angioplasty. now with VICKIE-3 flow and good result to the proximal circumflex. We will continue with medical treatment. The patient would benefit from considering angioplasty to the distal LAD at the later stage. 10/04/19 : US Carotid: 1) Less than 50% stenosis in the right internal carotid artery by sonographic Criteria ,2) Less than 50% stenosis in the left internal carotid artery by sonographic criteria ,2) Less than 50% stenosis in the left internal carotid artery by sonographic criteria 10/31/19 Left heart Cath with lft coronary artery angiogram : Angiogram 10/31/2019 Severe disease of the LAD distally. Successful angioplasty with stent placement to the distal LAD using a Xience stent 2.5x 23 mm with good result 10/04/19 : US Carotid: 1) Less than 50% stenosis in the right internal carotid artery by sonographic Criteria ,2) Less than 50% stenosis in the left internal carotid artery by sonographic criteria ,2) Less than 50% stenosis in the left internal carotid artery by sonographic criteria Angiogram 10/02/2019 Left main medium sized artery, no stenosis. LAD showed distal LAD 75% with very distal disease right at the apex There is a 1st diagonal branch that has mild to moderate diffuse disease 50% to 60% narrowing. Left circumflex is totally occluded in the proximal portion. RCA is a dominant vessel with minimal irregularity. No obstructive lesion. Post angioplasty of the circumflex is open with good VICKIE 3 flow, which was VICKIE 0 before the procedure for the angioplasty, now with VICKIE 3 flow and good result to the proximal circumflex Echo 10/02/2019 LVSF is normal, estimated at 60-65%. Mild pulmonary HTN, estimated pulmonary arterial systolic pressure is 45 mmHg 10/02/19 Mild fusiform ascending thoracic aortic aneurysm measuring. 4.1 x 4.2 cm No acute cardiopulmonary disease. XR, chest, 2 view No acute cardiopulmonary disease CHELSEA COHEN [place], [place] - [facility] 01/01/2024 12:42:31 Care Team Name Role Member ID Specialty Address Phone CHATO ROTH MD Primary Care Provider [id number] [place] [address]
--- OUTSIDE RECORDS SUMMARY | 2025-10-29 08:40 | XMS_ITS | Clinical Summary ---
Author Organization [facility] [place] Address [address] [address] [place] [address] Care Team Providers Care Brick Baker Name Role Phone Unavailable Primary Care Provider Unavailabl e Allergies Active Allergy Reactions Criticality Noted Date Comments Omeprazole Unknown 01/12/2024 Medications aspirin (ECOTRIN EC) 81 mg Tablet, Delayed Release (E.C.) Take 81 mg by mouth daily. Active clopidogreL (PLAVIX) 75 mg Tablet Take 75 mg by mouth daily. Active losartan (COZAAR) 50 mg tablet Take 25 mg by mouth daily at bedtime. Active metoprolol succinate (TOPROL XL) 25 mg Extended Release 24 hour tablet Take 25 mg by mouth daily at bedtime. Active rosuvastatin (CRESTOR) 20 mg tablet Take 20 mg by mouth daily at bedtime. Active cetirizine (ZyrTEC) 10 mg tablet Take 10 mg by mouth daily. Active Cholecalciferol, Vitamin D3, 50 mcg (2,000 unit) Capsule Take 50 mcg by mouth daily. Active Active Problems Patient Care Coordination No te Formatting of this note migh t be different from the original. Parole Agent- Hima Charles MD Cornelius Pt Problem Noted Date Diagnosed Date Coronary arteriosclerosis 01/12/2024 GERD (gastroesophageal reflux disease) Acute non-ST segment elevation myocardial infarc tion 10/12/2019 Family History Medical History Relation Name Comments Arrhythmia Father Diabetes Father Heart Attack Father Heart Disease Father High Cholesterol Father Hypertension Father Diabetes Sister Relation Name Status Comments Father Sister Social History Tobacco Use Types Packs/Day Years Used Date Smoking Tobacco: Former Cigarettes Tobacco Cessation:Counseling Given: Not Answered Feeling Safe Answer Date Recorded Are you in a relationship wi th someone who hurts you emotionally and/or physically? 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 Gender Identity Not on file Sexual Orientation Not on file Last Filed Vital Signs Vital Sign Reading Time Taken Comments Blood Pressure 121/75 02/15/2024 2:30 PM CDT Pulse 61 02/15/2024 2:30 PM CDT Temperature 35.7 C (96.3 F) 02/15/2024 10:28 AM CDT Respiratory Rate 18 02/15/2024 10:28 AM CDT Oxygen Saturation 99% 02/15/2024 2:30 PM CDT Inhaled Oxygen Concentration - - Weight 113.4 kg (250 lb) 02/15/2024 10:28 AM CDT Height 177.8 cm (5' 10) 01/23/2024 11:41 AM CDT Body Mass Index 35.87 01/23/2024 11:41 AM CDT Plan of Treatment Health Maintenance Due Date Last Done Comments DTAP/TDAP/TD VACCINES (1 - Tdap) 1997 HEPATITIS B VACCINES (1 of 3 - 19+ 3-dose series) 02/1997 COLORECTAL SCREENING 2023 Colorectal Cancer Screening 2023 FIT-DNA Q 3 years 2023 FIT/FOBT Q 1 year 2023 Flex Sig/CT Colonography Q 5 years 2023 INFLUENZA VACCINE (#1) 2025 Medical Devices Implanted Type Area Haulage Engine Operator Device Identifier Shelf Expiration Date Model / Serial / Lot Sealant Mynx Vasc Closure 5fr Vcd [id number] - [id number] Implanted:Qty: 1 on 02/15/2024 at [facility] Closure Device Right: Groin CORDIS 11/05/2025 [id number] / / [id number] Cardiac Stent X[place] [address] [facility] [id number] Advance Directives For more information, please contact: [phone] * Full Code (Latest Code Status on File) Date Activated Date Inactivated Comments 02/15/2024 10:22 AM 02/15/2024 5:03 PM
--- NOTE | 2025-10-29 08:52 | ECHO_ITS ---
Patient Info Name: Catrachito Shen Age: 45 years : 1980 Gender: Male Ht: 70 in Wt: 270 lbs BSA: 2.51 m2 HR: 63 bpm BP: 137 / 100 mmHg Heart Rhythm: Sinus Rhythm Technical Quality: Fair Exam Date: 10/29/2025 8:56 AM Patient Status: O Admit Date: 10/29/2025 Exam Type: CA echo doppler color flow Complete two-dimensional, color flow and Doppler transthoracic echocardiogram is performed. Poultry Service Technician: Surekha Vasquez Attending Provider: Jean Cuellar DO Summary 1. Complete two-dimensional, color flow and Doppler transthoracic echocardiogram is performed. 2. Left ventricular chamber dimension is normal. 3. Left ventricular systolic function is normal, estimated at 65-70. 4. The left ventricular diastolic function is grade I diastolic dysfunction. 5. E/e' 6 is not elevated. 6. Left atrial chamber dimension is mildly enlarged. 7. There is mild aortic valve sclerosis. 8. No pulmonary hypertension, estimated pulmonary arterial systolic pressure is 22 mmHg. 9. The aortic root size at the sinus of Valsalva is borderline dilated at 4.0 cm. 10. The prox ascending aorta size is borderline dilated at 4.0 cm. Left Ventricle E/e' 6 is not elevated. Left ventricular chamber dimension is normal. Left ventricular systolic function is normal, estimated at 65-70. The left ventricular diastolic function is grade I diastolic dysfunction. Right Ventricle Right ventricular chamber dimension is normal. Right ventricular systolic function is normal and with normal TAPSE 1.9 cm. Left Atria Left atrial chamber dimension is mildly enlarged. Right Atria Right atrial chamber dimension is normal. Aortic Valve The aortic valve is trileaflet. There is mild aortic valve sclerosis. There is no aortic valve stenosis. There is no aortic valve regurgitation. Pulmonic Valve There is no pulmonic regurgitation. Mitral Valve There is no mitral valve stenosis. There is no mitral valve regurgitation. Tricuspid Valve There is no tricuspid valve regurgitation. No pulmonary hypertension, estimated pulmonary arterial systolic pressure is 22 mmHg. Pericardium/Pleural There is no pericardial effusion. Inferior Vena Cava Normal inferior vena cava with >50% collapse upon inspiration consistent with normal right atrial pressure, 5 mmHg. Aorta The aortic root size at the sinus of Valsalva is borderline dilated at 4.0 cm. The prox ascending aorta size is borderline dilated at 4.0 cm. Left Ventricular Outflow Tract Name Value Normal LVOT 2D LVOT Diameter 2.4 cm LVOT Doppler LVOT Peak Velocity 109 cm/s LVOT Peak Gradient 5 mmHg LVOT Mean Gradient 3 mmHg LVOT VTI 22 cm LVOT VTI/AV VTI Ratio 0.9 LVOT Stroke Volume 96 ml LVOT CO 5.3 l/min LVOT CI 2.1 l/min/m2 Pulmonic Valve Name Value Normal RVOT Doppler RVOT Peak Velocity 71 cm/s RVOT Peak Gradient 2 mmHg PV Doppler PV Peak Velocity 96 cm/s PV Peak Gradient 4 mmHg Mitral Valve Name Value Normal MV Diastolic Function MV E Peak Velocity 45 cm/s MV A Peak Velocity 64 cm/s MV E/A 0.7 MV Decel Time (PW) 379 ms MV Annular TDI MV E/e' (Septal) 7.9 MV E/e' (Lateral) 5.7 MV E/e' (Average) 6.8 Tricuspid Valve Name Value Normal TV Regurgitation Doppler TR Peak Velocity 206 cm/s TR Peak Gradient 11 mmHg Estimated PAP/RSVP RA Pressure 5 mmHg <=5 PA Systolic Pressure 22 mmHg <36 RV Systolic Pressure 22 mmHg <36 TV Annular TDI TV Lateral Alaina s' Velocity 7.6 cm/s >=9.5 Aorta Name Value Normal Ascending Aorta Ao Root Diameter (MM) 4.1 cm Ao Root Diam Index (MM) 1.6 cm/m2 Aortic Valve Name Value Normal AV Doppler AV Peak Velocity 112 cm/s AV Peak Gradient 5 mmHg AV Mean Gradient 3 mmHg AV VTI 25 cm AV Area (Cont Eq VTI) 3.8 cm2 >=3.0 AV Area (Cont Eq Narciso) 4.2 cm2 AV DI (Narciso) 0.97 AV Regurgitation 2D LVOT Area 4.3 cm2 Ventricles Name Value Normal LV Dimensions 2D/MM IVS Diastolic Thickness (2D) 1.1 cm 0.6-1.0 LVID Diastole (2D) 5.4 cm 4.2-5.8 LVIW Diastolic Thickness (2D) 1.1 cm 0.6-1.0 LVID Systole (2D) 3.3 cm 2.5-4.0 LVOT Diameter 2.4 cm LV Mass (2D Cubed) 239.04 g 88.00-224.00 LV Mass Index (2D Cubed) 95 g/m2 49-115 Relative Wall Thickness (2D) 0.41 <=0.42 LV Fractional Shortening/Ejection Fraction 2D/MM LV Fractional Shortening (2D) 40 % 25-43 LV EF (2D Teichholz) 70 % LV Diastolic Volume (4C MOD) 106 ml LV EF (4C MOD) 68 % LV Diastolic Volume (2C MOD) 123 ml LV EF (2C MOD) 68 % LV Diastolic Volume (BP MOD) 117 ml 62-150 LV Diastolic Volume Index (BP MOD) 47 ml/m2 34-74 LV Systolic Volume (BP MOD) 38 ml 21-61 LV Systolic Volume Index (BP MOD) 15 ml/m2 11-31 LV EF (BP MOD) 68 % 52-72 LV Diastolic Length (4C) 8.4 cm LV Systolic Length (4C) 7.1 cm LV Stroke Volume (4C MOD) 72 ml Atria Name Value Normal LA Dimensions LA Dimension (MM) 4.6 cm 3.0-4.0 LA Volume (4C A-L) 62 ml LA Volume (BP A-L) 67 ml RA Dimensions RA Area (4C) 15.3 cm2 <=18.0 Report Signatures
== END 2025-10-29 08:36 | disposition home or self-care (01) ==
PROVIDERS: PCP Emergency Medicine; Visit Provider Internal Medicine Cardiovascular Disease
DX: R93.1 Abnormal findings on diagnostic imaging of heart and coronary circulation (principal); I71.21 Aneurysm of the ascending aorta, without rupture
CPT/HCPCS: 93306